=== PATIENT | male | born 1970 | race African-American/Black ===

== ENCOUNTER 2017-07-20 13:32 | Emergency (ER) | payer SELFPAY ==
[~2017-07-20] VITALS: Ht 170.2 cm; Wt 95.6 kg
[~2017-07-20 13:32] MED LIST: LORTAB 5/3255 MG PO; ROBITUSSIN200 MG/10 PO
[2017-07-20 16:20] LABS: HEMATOCRIT 49.4 % (39.0-50.0); HEMOGLOBIN 15.5 g/dl (14.0-18.0); IMMATURE GRANULOCYTES 0.7 % (0.0-1.0); MEAN CELL VOLUME 87.6 fL CALC (80.0-100.0); MEAN CORPUSCULAR HGB 27.5 pG CALC (26.0-32.0); MEAN CORPUSCULAR HGB CONC 31.4 g/L CALC (32.0-36.0); NEUT# 3.23 thou/uL (1.82-7.42); RED BLOOD COUNT 5.64 mill/uL (4.70-6.10)
[2017-07-20] MEDS ORDERED: ULTRAM50 M1 PO (16:26)
[2017-07-20] MEDS ORDERED: FLEXERIL PO (16:26)
[2017-07-20] MEDS ORDERED: CLONIDINE0.1 MG PO (16:26)
[2017-07-20 16:27] LABS: ALBUMIN 4.4 g/dL (3.2-5.0); ALKALINE PHOSPHATASE 57 u/l (38-126); ANION GAP 19 (6-22 (CALC)); BILIRUBIN, TOTAL 0.9 mg/dL (0.0-1.4); BUN 10 mg/dL (9-20); BUN/CREATININE RATIO 13 (12-20 (CALC)); CALCIUM 9.2 mg/dL (8.4-10.2); CARBON DIOXIDE 19 mmol/l (22-30); CHLORIDE 107 mmol/l (95-108); CREATININE 0.8 mg/dL (0.7-1.3); GFR > 60 ML/MIN (>=60 (CALC)); GFR FOR AFR.AMER. > 60 ML/MIN (>=60 (CALC)); GLUCOSE 108 mg/dL (75-110); POTASSIUM 4.7 mmol/l (3.5-5.1); SGOT/AST 39 u/l (17-59); SGPT/ALT 24 u/l (21-72); SODIUM 140 mmol/l (137-146); TOTAL PROTEIN 8.1 g/dL (6.3-8.2)
[2017-07-20 16:58] VITALS: BP 153/89
== END 2017-07-20 16:58 | disposition home or self-care (01) | DRG 563 ==
LOC: ED 13:32
PROVIDERS: Emergency Medicine
DX: S39.012A Strain of muscle, fascia and tendon of lower back, initial encounter (principal); I10 Essential (primary) hypertension; M50.322 Other cervical disc degeneration at C5-C6 level; M17.11 Unilateral primary osteoarthritis, right knee; V00-Y99 External causes of morbidity